=== PATIENT | female | born 1930 | race Caucasian/White ===

== ENCOUNTER 2016-12-18 12:30 | Emergency (ER) | payer MEDICARE, OTHER ==
[~2016-12-18] VITALS: Ht 157.5 cm; Wt 55.3 kg
--- NOTE | 2016-12-18 12:42 | PHYS DOC ---
General Chief Complaint: blood pressure Stated Complaint: BLOOD PRESSURE CHECK Time Seen by MD: 12:32 Source: patient Exam Limitations: no limitations Problems: History of Present Illness Initial Comments Patient is an 86-year-old female brought to the ED by her spouse were elevated blood pressure. Patient states that she was waiting for an appointment with her eye doctor earlier today when she was told to come to the ED due to her blood pressure. She says this isn't the first time this is happened, it happened at the dentist office. Patient has history of hypothyroidism but stopped taking all medications and stopped seeing doctors "years ago." Patient denies any symptoms at all. She denies fatigue or malaise headache vision changes chest pain trouble breathing or focal neurologic deficit. Her blood pressure on arrival is 223/74 she is not diaphoretic and has no expression of discomfort. The patient states she doesn't want to be here but does agree to talk to me about her blood pressure and try medication. Timing/Duration: unsure Severity: moderate Modifying Factors: improves with other Associated Symptoms: denies symptoms Allergies: Coded Allergies: No Known Drug Allergies (Unverified , 12/18/16) Past Medical History Medical History: other (hypothyroid, hypertension (patient threw away all her meds and stop seeing doctors years ago)) Surgical History: noncontributory Social History Smoker: non-smoker Alcohol: none Drugs: none Review of Systems Constitutional: denies chills, denies fever, denies malaise Respiratory: denies cough, denies shortness of breath Cardiovascular: denies chest pain, denies palpitations Gastrointestinal: denies nausea, denies vomiting Musculoskeletal: denies back pain, denies joint swelling, denies neck pain Psychiatric/Neurological: denies headache, denies numbness, denies paresthesia Physical Exam General Appearance: WD/WN, no apparent distress Eyes: bilateral eye normal inspection, bilateral eye PERRL, bilateral eye EOMI Ear, Nose, Throat: hearing grossly normal, normal ENT inspection Neck: non-tender, supple Respiratory: normal breath sounds, no respiratory distress Cardiovascular: normal peripheral pulses, regular rate, rhythm Gastrointestinal: non tender, soft Back: no CVA tenderness, no vertebral tenderness Extremities: non-tender, normal inspection, no pedal edema 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 Interpreted by Dr. Crawford. Patient received 0.2 by mouth however the RN states that patient's blood pressure normalized immediately prior to taking the clonidine. The patient was monitored in the ED for over an hour she had no further blood pressure issues and remained asymptomatic. I discussed further testing the patient declines. I discussed and the patient understands that if she does not seek treatment for blood pressure and will kill her. She understands that she can have a stroke and lose already of life and/or . She was advised to follow-up with Dr. Benson tomorrow and expressed agreement with this in the emergency department. Departure Time of Disposition: 14:29 Disposition: 01 HOME, SELF-CARE Diagnosis: uncontrolled HTN, medical noncompliance, h/o hypot Condition: IMPROVED Patient Instructions: Hypertension, [id number] Additional Instructions: As discussed long-term antihypertensive medications are not prescribed from the emergency department as they require close follow-up for blood pressure checks and labs. Follow-up by Dr. Hernández's office tomorrow morning for a walk-in appointment to reestablish care for hypothyroidism and hypertension and continue health maintenance. Follow-up with your eye doctor for further evaluation after blood pressure is controlled. Return to ED with new or changing symptoms SRINIVASA CRAWFORD DO Dec 18, 2016 12:42
[2016-12-18] MEDS ORDERED: cloNIDine HCL 0.1 MG TABLET PO ONE (13:30)
[2016-12-18 15:00] VITALS: BP 130/61
--- NOTE | 2016-12-18 17:19 | EKG ---
[address] [address] Test Date: 2016-12-18 Test Time: 13:22:03 Pat Name: HIPOLITO GOOD Department: Room: Gender: F [employer] Operations Processor: AMAURI : 1930 Requested By: SRINIVASA BURR Order Number: [id number] Reading MD: Osiel Dacosta Measurements Intervals [place] Rate: 57 P: 49 RI: 178 QRS: -8 QRSD: 80 T: 42 QT: 398 QTc: 390 Interpretive Statements SINUS RHYTHM Electronically Signed On 12-22-2016 11:06:18 CDT by Osiel Dacosta
== END 2016-12-18 15:00 | disposition home or self-care (01) ==
LOC: ER 12:30
DX: I10 Essential (primary) hypertension (principal); Z91.19 Patient's noncompliance with other medical treatment and regimen; E03.9 Hypothyroidism, unspecified
CPT/HCPCS: 93005; 99283-25; 99284-25